=== PATIENT | male | born 1955 | race Caucasian/White ===

== ENCOUNTER 2019-01-12 11:35 | Emergency (ER) | payer BC, OTHER ==
[~2019-01-12] VITALS: Ht 175.3 cm; Wt 68.0 kg
[~2019-01-12 11:35] MED LIST: DIGO125T PO; DILT60CA2 PO
--- NOTE | 2019-01-12 11:35 | NUR ---
CAME IN FOR L RING FINGER LACERATION; DENIES ANY PAIN. LAST TETANUS UNK. TO ER BED 10, VSS, PROVIDED W WARM BLANKET, AWAITING MD SQUIRES.
--- NOTE | 2019-01-12 11:50 | NUR ---
DR ARANDA AT BEDSIDE.
[2019-01-12] MEDS ORDERED: LIDOCAINE 1%-EPI 1:100,000 20 ML VIAL ONE (11:55)
[2019-01-12] MEDS ORDERED: TDAP [DIPH/PERTUSSIS/TET] 0.5 ML VIAL IM ONE ×2 (12:00→12:08)
[2019-01-12] MEDS ORDERED: LIDOCAINE HCL/PF 1% 30 ML VIAL TP ONE (12:00)
--- NOTE | 2019-01-12 12:32 | NUR ---
DR ARANDA AT BEDSIDE FOR SUTURE.
--- NOTE | 2019-01-12 13:20 | NUR ---
WOUND CARE DONE. Patient discharged to home in stable condition. Written and verbal after care instructions given. Patient verbalizes understanding of instruction.
[2019-01-12 13:23] VITALS: BP 132/70
== END 2019-01-12 13:25 | disposition home or self-care (01) ==
LOC: ER 11:36
DX: S61.215A Laceration without foreign body of left ring finger without damage to nail, initial encounter (principal); I48.91 Unspecified atrial fibrillation; K21.9 Gastro-esophageal reflux disease without esophagitis; Z90.89 Acquired absence of other organs; Z98.890 Other specified postprocedural states; Z88.0 Allergy status to penicillin; Z79.899 Other long term (current) drug therapy; W29.3XXA Contact with powered garden and outdoor hand tools and machinery, initial encounter; Y93.89 Activity, other specified; Y92.89 Other specified places as the place of occurrence of the external cause; Y99.0 Civilian activity done for income or pay
CPT/HCPCS: 12001; 90471; 90715; 99283; J3490 ×2